=== PATIENT | male | born 1955 | race American Indian/Alaskan Native ===

== ENCOUNTER 2020-01-30 10:44 | Outpatient (CLI) | payer OTHER ==
--- NOTE | 2020-01-30 12:44 | XRay Report ---
RIGHT SHOULDER 3 VIEWS INDICATION / CLINICAL INFORMATION: SHOULDER PAIN, BACK PAIN COMPARISON: None available. FINDINGS: BONES / JOINT(S): No acute fracture or subluxation. No significant arthritis. SOFT TISSUES: No significant abnormality. ADDITIONAL FINDINGS: Old right ninth and 10th rib fractures posteriorly. Signer Name: Gino Phillips MD Signed: 01/30/2020 12:39 PM Workstation Name: [email or web address]
--- NOTE | 2020-01-30 12:54 | XRay Report ---
LUMBAR SPINE 3 VIEWS INDICATION / CLINICAL INFORMATION: BACK PAIN, SHOULDER PAIN COMPARISON: None available. FINDINGS: BONES / JOINT(S): No acute fracture or subluxation. Moderately advanced DDD L5-S1. SOFT TISSUES: No significant abnormality. ADDITIONAL FINDINGS: None. Signer Name: Gino Phillips MD Signed: 01/30/2020 12:49 PM Workstation Name: [email or web address]
== END 2020-01-30 10:45 | disposition home or self-care (01) ==
LOC: XRAY 10:44
PROVIDERS: ATTEND Internal Medicine
DX: M47.817 Spondylosis without myelopathy or radiculopathy, lumbosacral region (principal); M25.511 Pain in right shoulder
CPT/HCPCS: 72100